=== PATIENT | female | born 2005 | race Caucasian/White ===

== ENCOUNTER → 2025-01-13 13:24 | Outpatient (REF) | payer OTHER, SELFPAY | LOC: RCS 13:24 | PROVIDERS: ATTENDING PHYSICIAN Physician Assistant Medical | DX: A18.01 Tuberculosis of spine (principal); Z09 Encounter for follow-up examination after completed treatment for conditions other than malignant neoplasm; R00.0 Tachycardia, unspecified | CPT/HCPCS: 93225; 93226 ==